=== PATIENT | female | born 1955 | race Caucasian/White ===

== ENCOUNTER 2018-12-10 03:21 | Inpatient (IN) | payer OTHER, MEDICARE ==
[~2018-12-10] VITALS: Ht 162.6 cm; Wt 73.1 kg
[2018-12-11 14:39] VITALS: BP 97/70
== END 2018-12-11 15:32 | disposition home or self-care (01) | DRG 100 ==
LOC: ED 06:05 → EDIP 06:10 → ED 06:16 → 4EST 07:18
PROVIDERS: ADMIT Internal Medicine; ATTEND Internal Medicine
PROC: 009U3ZX Drainage of Spinal Canal, Percutaneous Approach, Diagnostic (ICD-10-PCS; principal; 2018-12-10)
DX: G40.409 Other generalized epilepsy and epileptic syndromes, not intractable, without status epilepticus (principal); N17.0 Acute kidney failure with tubular necrosis; A86 Unspecified viral encephalitis; E87.2 Acidosis; R53.83 Other fatigue; I10 Essential (primary) hypertension; F17.210 Nicotine dependence, cigarettes, uncomplicated; W18.30XA Fall on same level, unspecified, initial encounter; R73.9 Hyperglycemia, unspecified; Z53.20 Procedure and treatment not carried out because of patient's decision for unspecified reasons; Z80.3 Family history of malignant neoplasm of breast; Z82.3 Family history of stroke; Z88.0 Allergy status to penicillin; Y93.89 Activity, other specified; Y92.89 Other specified places as the place of occurrence of the external cause; Y99.8 Other external cause status
CPT/HCPCS: 36415; 70450; 70553; 80048; 80053; 80307; 81003; 82945; 83735; 84100; 84157; 84484; 85025; 87040; 87070; 87205; 87252; 87529; 89051; 93005; 95816; 96374; 96375; 99291; A9585; G0378; J0133; J0696; J2405; J3370; J7060; J2060; J7050; J7120

== ENCOUNTER → 2019-08-03 | Outpatient (CLI) | payer OTHER, MEDICARE ==
[~2019-08-03] MED LIST: ACET-1600 PO; ACET325T26 PO; APIX5TAB PO; FURO-93 PO; SOTA80TA18 PO; THYR30TA PO
[2019-08-03 13:07] LABS: CHLORIDE 111 mmol/L (98-107)
[2019-08-03 13:22] LABS: ALANINE AMINOTRANSFERASE 88 U/L (12-78); ALBUMIN 3.8 g/dL (3.4-5.0); ALKALINE PHOSPHATASE 163 U/L (45-117); ANION GAP 8 mmol/L (5-15); BILIRUBIN,TOTAL 1.5 mg/dL (0.2-1.0); CALCIUM 9.1 mg/dL (8.5-10.1); CHOLESTEROL, TOTAL 149 mg/dL (140-239); CREATININE 1.14 mg/dL (0.55-1.02); HDL CHOL % 17 % (28-40); HDL CHOLESTEROL (DIRECT) 25 mg/dL (40-60); LDL CHOLESTEROL,CALCULATED 106 mg/dL (54-169); LDL/HDL RATIO 4.2 (0.5-3.0); T4 (THYROXINE) 7.9 mcg/dL (4.8-13.9); TOTAL PROTEIN 7.1 g/dL (6.4-8.2); TRIGLYCERIDES 89 mg/dL (50-200); VLDL CHOLESTEROL 18 mg/dL (0-25)
[2019-08-03 13:56] LABS: BASOPHILS # (AUTO) 0.04 x10^3/uL (0-0.1); BASOPHILS % (AUTO) 1 % (0-1); EOSINOPHILS # (AUTO) 0.13 x10^3/uL (0-0.4); EOSINOPHILS % (AUTO) 2 % (1-7); LYMPHOCYTES # (AUTO) 0.89 x10^3/uL (1-3.4); LYMPHOCYTES % (AUTO) 11 % (22-44); MEAN CORPUSCULAR HEMOGLOBIN 29.5 pg (27.0-34.8); MEAN CORPUSCULAR HGB CONC 32.7 g/dL (32.4-35.8); MEAN CORPUSCULAR VOLUME 90.2 fL (80-100); MEAN PLATELET VOLUME 10.1 fL (7.4-10.4); MONOCYTES # (AUTO) 1.19 x10^3/uL (0.2-0.8); MONOCYTES % (AUTO) 15 % (2-9); NEUTROPHILS # (AUTO) 5.91 x10^3/uL (1.8-6.8); NEUTROPHILS % (AUTO) 73 % (42-75); PLATELET COUNT 434 x10^3/uL (130-400); RED BLOOD COUNT 5.11 x10^6/uL (3.82-5.3); RED CELL DISTRIBUTION WIDTH 16.6 % (9.6-15.2)
[2019-08-03 13:57] LABS: MD MORPH REVIEW ONLY
[2019-08-03 14:00] LABS: ANISOCYTOSIS 1+; POLYCHROMASIA 1+
[2019-08-03 14:01] LABS: <PLATELET ESTIMATE> INCREASED; GIANT PLATELETS 1+; LARGE PLATELETS 1+; OVALOCYTES 1+
== END | disposition home or self-care (01) ==
LOC: CFH 09:17
PROVIDERS: ATTEND Internal Medicine Cardiovascular Disease
DX: Z51.81 Encounter for therapeutic drug level monitoring (principal); I11.0 Hypertensive heart disease with heart failure; R56.9 Unspecified convulsions; R79.89 Other specified abnormal findings of blood chemistry; E03.9 Hypothyroidism, unspecified; I48.0 Paroxysmal atrial fibrillation; Z79.01 Long term (current) use of anticoagulants
CPT/HCPCS: 36415; 80053; 80061; 84436; 84481; 85025

== ENCOUNTER 2019-08-04 10:38 | Inpatient (IN) | payer MEDICARE, OTHER ==
[~2019-08-04] VITALS: Ht 162.6 cm; Wt 73.4 kg
[~2019-08-04 10:38] MED LIST changes: -ACET-1600 PO
[2019-08-04] MEDS ORDERED: SODIUM CHLORIDE 0.9% 1,000 ML IV SCH (12:01)
[2019-08-04 12:03] VITALS: BP 113/65
[2019-08-04] MEDS ORDERED: ACET-1600 PO (12:26)
[2019-08-04] MEDS ORDERED: MIDAZOLAM 1 MG/ML, 5ML ONE (12:34)
[2019-08-04] MEDS ORDERED: HEPARIN 1,000 UNITS/ML, 10ML ONE (12:34)
[2019-08-04] MEDS ORDERED: FENTANYL PF 100 MCG/2ML ONE (12:34)
[2019-08-04] MEDS ORDERED: LIDOCAINE-MPF 1%, 5ML ONE (12:34)
[2019-08-04] MEDS ORDERED: BIVALIRUDIN 250 MG ONE (12:34)
[2019-08-04] MEDS ORDERED: VERAPAMIL 2.5 MG/ML, 2ML ONE (12:34)
[2019-08-04] MEDS ORDERED: TICAGRELOR 90 MG TABLET ONE (12:34)
[2019-08-04] MEDS ORDERED: EPINEPHRINE SYRINGE 0.1 MG/ML, 10ML ONE ×4 (13:20→15:08)
[2019-08-04] MEDS ORDERED: DIPHENHYDRAMINE 50 MG/ML, 1ML ONE (13:20)
[2019-08-04] MEDS ORDERED: PROPOFOL 100 ML IV ONE (13:39)
[2019-08-04] MEDS ORDERED: LIDOCAINE 2%, 20ML ONE (13:44)
[2019-08-04] MEDS ORDERED: EPINEPHRINE 1 MG/ML, 1ML ONE (13:57)
[2019-08-04] MEDS ORDERED: CODE BLUE RESPONSE XX ONE (13:57)
[2019-08-04] MEDS ORDERED: SODIUM BICARB 8.4%, 50ML SYRINGE ONE (13:57)
[2019-08-04] MEDS ORDERED: PHENYLEPHRINE 10 MG/ML ONE ×3 (13:59→14:36)
[2019-08-04] MEDS ORDERED: ETOMIDATE 20 MG/10 ML ONE (15:09)
[2019-08-04] MEDS ORDERED: SUCCINYLCHOLINE 20 MG/ML, 10ML ONE (15:09)
[2019-08-04] MEDS ORDERED: SODIUM PHOSPHATE 20 MMOL in SODIUM CHLORIDE 0.9% 250 ML IVPB PRN (15:25)
[2019-08-04] MEDS ORDERED: PROPOFOL 100 ML IV PRN (15:25)
[2019-08-04] MEDS ORDERED: FENTANYL PF 100 MCG/2ML IVPush PRN (15:30)
[2019-08-04] MEDS ORDERED: PHARMACY MAY ADJ FOR RENAL FX MC SCH (15:30)
[2019-08-04] MEDS ORDERED: HEPARIN 25,000 UNITS/250ML PMX 250 ML IV PRN (15:30)
[2019-08-04] MEDS ORDERED: LIDOCAINE-MPF 1%, 2ML ENDO PRN (15:30)
[2019-08-04] MEDS ORDERED: CALCIUM CHLORIDE 13.6 MEQ in SODIUM CHLORIDE 0.9% 100 ML IVPB PRN (15:30)
[2019-08-04] MEDS ORDERED: HEPARIN 5,000 UNITS/ML, 1ML IV PRN (15:30)
[2019-08-04] MEDS ORDERED: HEPARIN 5,000 UNITS/ML, 1ML IV ONE (15:30)
[2019-08-04] MEDS ORDERED: FENTANYL PF 1,000 MCG in SODIUM CHLORIDE 0.9% 80 ML IV PRN (15:30)
[2019-08-04] MEDS: FENTANYL PF 1,000 MCG in SODIUM CHLORIDE 0.9% 80 ML IV PRN (16:19)
[2019-08-04] MEDS ORDERED: FUROSEMIDE 40 MG/4 ML ONE (16:24)
[2019-08-04] MEDS ORDERED: FUROSEMIDE 40 MG/4 ML IV ONE (16:30)
[2019-08-04] MEDS ORDERED: POTASSIUM CHLORIDE PMX 100 ML IV ONE (16:30)
[2019-08-04] MEDS ORDERED: MAGNESIUM SULFATE PMX 2GM/50ML 50 ML IV ONE (16:30)
[2019-08-04] MEDS: ARTIFICIAL TEARS OINT 3.5 GM EACHEYE SCH (16:36)
[2019-08-04] MEDS: FAMOTIDINE 20 MG/2 ML IVPush SCH (16:41)
[2019-08-04] MEDS: MIDAZOLAM HCL 50 MG in SODIUM CHLORIDE 0.9% 40 ML IV PRN ×2 (17:18→19:22)
[2019-08-04] MEDS ORDERED: VECURONIUM 50 MG in SODIUM CHLORIDE 0.9% 50 ML IV PRN (17:30)
[2019-08-04] MEDS ORDERED: DOPAMINE/D5W PMX 250 ML ONE (17:36)
[2019-08-04] MEDS ORDERED: SODIUM CHLORIDE 0.9%, 500ML IVBOLUS ONE (18:00)
[2019-08-04 18:26] LABS: ALBUMIN 2.7 g/dL (3.4-5.0); ANION GAP 9 mmol/L (5-15); CALCIUM 7.1 mg/dL (8.5-10.1); CHLORIDE 113 mmol/L (98-107)
[2019-08-04 18:27] LABS: INTERNATIONAL NORMALIZED RATIO 1.75 (0.93-1.1); PROTHROMBIN TIME 18.7 Seconds (9.6-11.5)
[2019-08-04 18:37] LABS: ALANINE AMINOTRANSFERASE 69 U/L (12-78); ALKALINE PHOSPHATASE 123 U/L (45-117); CREATININE 1.38 mg/dL (0.55-1.02); TOTAL PROTEIN 5.4 g/dL (6.4-8.2)
[2019-08-04] MEDS: PROPOFOL 100 ML IV PRN (19:21)
[2019-08-04 19:44] LABS: MD YES; MEAN CORPUSCULAR HEMOGLOBIN 29.6 pg (27.0-34.8); MEAN CORPUSCULAR HGB CONC 32.8 g/dL (32.4-35.8); MEAN CORPUSCULAR VOLUME 90.1 fL (80-100); MEAN PLATELET VOLUME 8.1 fL (7.4-10.4); PLATELET COUNT 53 x10^3/uL (130-400); RED BLOOD COUNT 4.94 x10^6/uL (3.82-5.3); RED CELL DISTRIBUTION WIDTH 16.8 % (9.6-15.2)
[2019-08-04] MEDS: KSCALE TO 4.0 IV SCH (19:47)
[2019-08-04 19:49] LABS: <PLATELET ESTIMATE> DECREASED; ANISOCYTOSIS 1+; BAND#(MANUAL) 2.51 x10^3/uL; BANDS%(MANUAL) 14 % (0-7); EOS#(MANUAL) 0.18 x10^3/uL (0.0-0.4); EOS% (MANUAL) 1 % (1-7); LYMPH#(MANUAL) 2.33 x10^3/uL (1-3.4); LYMPHS% (MANUAL) 13 % (22-44); METAMYELOCYTES# (MANUAL) 0.18 x10^3/uL (0-0); METAMYELOCYTES% (MANUAL) 1 % (0-1); MONOS#(MANUAL) 2.33 x10^3/uL (0.3-2.7); MONOS% (MANUAL) 13 % (2-9); OVALOCYTES 1+; POLYCHROMASIA 1+; SEG#(MANUAL) 10.38 x10^3/uL (1.8-6.8); SEGS% (MANUAL) 58 % (42-75); SPHEROCYTES 1+
[2019-08-04 19:50] LABS: HYPOGRAN PLTS 1+; LARGE PLATELETS 1+
[2019-08-04] MEDS ORDERED: POTASSIUM CHLORIDE PMX 100 ML IVPB SCH (20:00)
[2019-08-04] MEDS ORDERED: MIDAZOLAM HCL 100 MG in SODIUM CHLORIDE 0.9% 80 ML IV PRN (20:30)
[2019-08-04] MEDS: BUSPIRONE 10 MG TABLET NG SCH (20:39)
[2019-08-04] MEDS ORDERED: NOREPINEPHRINE 1 MG/ML, 4ML ONE (21:41)
[2019-08-04] MEDS: NOREPINEPHRINE 8 MG in SODIUM CHLORIDE 0.9% 242 ML IV PRN (22:00)
[2019-08-05] MEDS: KSCALE TO 4.0 IV SCH ×7 (00:05→22:59)
[2019-08-05] MEDS: ARTIFICIAL TEARS OINT 3.5 GM EACHEYE SCH ×3 (00:37→15:50)
[2019-08-05 02:54] LABS: ANION GAP 9 mmol/L (5-15); CALCIUM 7.3 mg/dL (8.5-10.1); CHLORIDE 113 mmol/L (98-107); CREATININE 1.37 mg/dL (0.55-1.02)
[2019-08-05] MEDS: PROPOFOL 100 ML IV PRN ×2 (03:08→18:26)
[2019-08-05] MEDS: NOREPINEPHRINE 8 MG in SODIUM CHLORIDE 0.9% 242 ML IV PRN ×2 (03:26→08:15)
[2019-08-05] MEDS: EPINEPHRINE 5 MG in SODIUM CHLORIDE 0.9% 245 ML IV PRN ×2 (03:33→07:19)
[2019-08-05] MEDS ORDERED: POTASSIUM CHLORIDE PMX 100 ML IV ONE ×2 (04:00→12:00)
[2019-08-05] MEDS: FAMOTIDINE 20 MG/2 ML IVPush SCH ×2 (04:13→17:00)
[2019-08-05] MEDS: BUSPIRONE 10 MG TABLET NG SCH ×3 (04:13→20:54)
[2019-08-05] MEDS: FENTANYL PF 1,000 MCG in SODIUM CHLORIDE 0.9% 80 ML IV PRN ×2 (04:40→18:27)
[2019-08-05 05:00] VITALS: BP 104/80
[2019-08-05 06:33] LABS: MEAN CORPUSCULAR HEMOGLOBIN 28.8 pg (27.0-34.8); MEAN CORPUSCULAR HGB CONC 32.6 g/dL (32.4-35.8); MEAN CORPUSCULAR VOLUME 88.5 fL (80-100); MEAN PLATELET VOLUME 8.8 fL (7.4-10.4); RED BLOOD COUNT 4.64 x10^6/uL (3.82-5.3); RED CELL DISTRIBUTION WIDTH 16.9 % (9.6-15.2)
[2019-08-05 06:35] LABS: MD YES
[2019-08-05 06:36] LABS: BANDS%(MANUAL) 4 % (0-7); EOS% (MANUAL) 1 % (1-7); LYMPH#(MANUAL) 1.21 x10^3/uL (1-3.4); LYMPHS% (MANUAL) 6 % (22-44); MONOS#(MANUAL) 2.41 x10^3/uL (0.3-2.7); MONOS% (MANUAL) 12 % (2-9); SEG#(MANUAL) 15.48 x10^3/uL (1.8-6.8); SEGS% (MANUAL) 77 % (42-75)
[2019-08-05 06:37] LABS: ANISOCYTOSIS 1+; ECHINOCYTES 1+; POLYCHROMASIA 1+
[2019-08-05 06:38] LABS: OVALOCYTES 1+; PLATELET COUNT 39 x10^3/uL (130-400)
[2019-08-05 06:39] LABS: <PLATELET ESTIMATE> DECREASED; HYPOGRAN PLTS 1+; LARGE PLATELETS 1+; SPHEROCYTES 1+
[2019-08-05] MEDS: DEXTROSE 50%, 50ML SYRINGE IVPush PRN ×2 (08:20→17:00)
[2019-08-05] MEDS ORDERED: GLUCAGON 1 MG IM PRN (08:30)
[2019-08-05] MEDS ORDERED: DEXTROSE 4 GM TAB.CHEW PO PRN (08:30)
[2019-08-05] MEDS: D5%-0.9% NACL 1,000 ML IV SCH ×2 (08:32→20:48)
[2019-08-05] MEDS: SODIUM CHLORIDE FLUSH 10ML SYR IVF SCH ×2 (10:28→20:57)
[2019-08-05] MEDS ORDERED: VANCOMYCIN PER PHARMACY MC PRN (12:00)
[2019-08-05] MEDS ORDERED: SODIUM CHLORIDE 0.9%, 500ML IVBOLUS ONE (12:00)
[2019-08-05] MEDS ORDERED: PHARMACOKINETIC MONITORING MC PRN (13:00)
[2019-08-05] MEDS ORDERED: PHARMACOKINETIC CONSULTATION MC ONE (13:00)
[2019-08-05] MEDS: VANCOMYCIN 1,400 MG in SODIUM CHLORIDE 0.9% 250 ML IV SCH (13:04)
[2019-08-05 16:34] LABS: INTERNATIONAL NORMALIZED RATIO 1.74 (0.93-1.1); PROTHROMBIN TIME 18.5 Seconds (9.6-11.5)
--- NOTE | 2019-08-05 17:05 | NUR ---
TF Recommendations if Needed promote goal: On propofol 65 ml/hr Off propofol 70 ml/hr
[2019-08-05] MEDS ORDERED: VASOPRESSIN 20 UNIT in SODIUM CHLORIDE 0.9% 99 ML IV PRN (17:30)
[2019-08-05 18:17] LABS: ALANINE AMINOTRANSFERASE 66 U/L (12-78); ALBUMIN 2.4 g/dL (3.4-5.0); ANION GAP 6 mmol/L (5-15); CALCIUM 6.6 mg/dL (8.5-10.1); CHLORIDE 116 mmol/L (98-107); CREATININE 1.36 mg/dL (0.55-1.02)
[2019-08-05 18:18] LABS: ALKALINE PHOSPHATASE 95 U/L (45-117); BILIRUBIN,TOTAL 1.5 mg/dL (0.2-1.0); TOTAL PROTEIN 4.8 g/dL (6.4-8.2)
[2019-08-05 18:53] LABS: D-DIMER (DIC) 1.09 ug/mlFEU (0.00-0.52); FIBRINOGEN 281 mg/dL (200-340); PROTIME 17.2 Seconds (9.6-11.5)
[2019-08-05 19:17] LABS: MEAN CORPUSCULAR HGB CONC 32.4 g/dL (32.4-35.8); MEAN CORPUSCULAR VOLUME 89.4 fL (80-100); RED CELL DISTRIBUTION WIDTH 17.2 % (9.6-15.2)
[2019-08-05 19:19] LABS: MD YES
[2019-08-05 19:21] LABS: ANISOCYTOSIS 1+; BAND#(MANUAL) 2.17 x10^3/uL; BANDS%(MANUAL) 14 % (0-7); BASOS#(MANUAL) 0.16 x10^3/uL (0-0.1); BASOS% (MANUAL) 1 % (0-1); ECHINOCYTES 1+; EOS#(MANUAL) 0.47 x10^3/uL (0.0-0.4); EOS% (MANUAL) 3 % (1-7); LYMPH#(MANUAL) 0.78 x10^3/uL (1-3.4); LYMPHS% (MANUAL) 5 % (22-44); MONOS#(MANUAL) 0.93 x10^3/uL (0.3-2.7); MONOS% (MANUAL) 6 % (2-9); OVALOCYTES 1+; POLYCHROMASIA 1+; REACTIVE LYMPHS # (MANUAL) 0.16 x10^3/uL (0-0); REACTIVE LYMPHS % (MANUAL) 1 % (0-0); SEG#(MANUAL) 10.85 x10^3/uL (1.8-6.8); SEGS% (MANUAL) 70 % (42-75)
[2019-08-05 19:22] LABS: <PLATELET ESTIMATE> DECREASED; LARGE PLATELETS 1+
[2019-08-05 19:38] LABS: PTT > 153 Seconds (25-31)
[2019-08-05 19:39] LABS: PLATELET (DIC) 20 x10^3/uL (130-400)
[2019-08-05 19:40] LABS: MEAN PLATELET VOLUME 10.6 fL (7.4-10.4); PLATELET COUNT 20 x10^3/uL (130-400)
[2019-08-05 20:04] LABS: HIT RESULT NEGATIVE (NEGATIVE)
[2019-08-05 20:33] LABS: MICROSCOPIC INDICATED
[2019-08-05 20:43] LABS: CULTURE INDICATED? YES
[2019-08-05] MEDS ORDERED: ARGATROBAN 250 MG in SODIUM CHLORIDE 0.9% 247.5 ML IV PRN ×3 (21:30→22:30)
[2019-08-05] MEDS ORDERED: POTASSIUM CHLORIDE PMX 100 ML IVPB SCH (23:00)
[2019-08-06] MEDS: NOREPINEPHRINE 8 MG in SODIUM CHLORIDE 0.9% 242 ML IV PRN ×3 (02:19→17:58)
[2019-08-06] MEDS: KSCALE TO 4.0 IV SCH ×7 (02:43→23:45)
[2019-08-06 04:02] LABS: ANION GAP 8 mmol/L (5-15); CALCIUM 6.7 mg/dL (8.5-10.1); CHLORIDE 119 mmol/L (98-107); CREATININE 1.33 mg/dL (0.55-1.02)
[2019-08-06 04:14] LABS: BASOPHILS # (AUTO) 0.01 x10^3/uL (0-0.1); BASOPHILS % (AUTO) 0 % (0-1); EOSINOPHILS # (AUTO) 0.13 x10^3/uL (0-0.4); EOSINOPHILS % (AUTO) 1 % (1-7); LYMPHOCYTES # (AUTO) 1.03 x10^3/uL (1-3.4); LYMPHOCYTES % (AUTO) 7 % (22-44); MD SCAN; MEAN CORPUSCULAR HEMOGLOBIN 29.3 pg (27.0-34.8); MEAN CORPUSCULAR HGB CONC 32.2 g/dL (32.4-35.8); MEAN CORPUSCULAR VOLUME 90.9 fL (80-100); MONOCYTES % (AUTO) 15 % (2-9); NEUTROPHILS # (AUTO) 12.38 x10^3/uL (1.8-6.8); NEUTROPHILS % (AUTO) 78 % (42-75); RED BLOOD COUNT 4.59 x10^6/uL (3.82-5.3); RED CELL DISTRIBUTION WIDTH 17.2 % (9.6-15.2)
[2019-08-06 04:16] LABS: MEAN PLATELET VOLUME 10.1 fL (7.4-10.4); PLATELET COUNT 22 x10^3/uL (130-400)
[2019-08-06] MEDS: FAMOTIDINE 20 MG/2 ML IVPush SCH ×2 (04:50→21:24)
[2019-08-06] MEDS: D5%-0.9% NACL 1,000 ML IV SCH ×2 (04:50→18:17)
[2019-08-06] MEDS: BUSPIRONE 10 MG TABLET NG SCH (04:50)
[2019-08-06] MEDS: EPINEPHRINE 5 MG in SODIUM CHLORIDE 0.9% 245 ML IV PRN ×2 (06:19→17:58)
[2019-08-06] MEDS ORDERED: ARGATROBAN 250 MG in SODIUM CHLORIDE 0.9% 247.5 ML IV PRN (07:00)
[2019-08-06] MEDS: ARTIFICIAL TEARS OINT 3.5 GM EACHEYE SCH ×3 (07:30→15:30)
[2019-08-06] MEDS: MAGNESIUM SULFATE 1 GM in DEXTROSE 5% 100 ML IVPB PRN ×2 (08:45→17:58)
[2019-08-06] MEDS: SODIUM CHLORIDE FLUSH 10ML SYR IVF SCH ×2 (10:48→21:26)
[2019-08-06 10:51] LABS: MEAN CORPUSCULAR HEMOGLOBIN 29.3 pg (27.0-34.8); MEAN CORPUSCULAR VOLUME 88.9 fL (80-100); MEAN PLATELET VOLUME 11.6 fL (7.4-10.4); RED BLOOD COUNT 4.29 x10^6/uL (3.82-5.3); RED CELL DISTRIBUTION WIDTH 17.5 % (9.6-15.2)
[2019-08-06 10:56] LABS: BASOPHILS # (AUTO) 0.02 x10^3/uL (0-0.1); BASOPHILS % (AUTO) 0 % (0-1); EOSINOPHILS # (AUTO) 0.09 x10^3/uL (0-0.4); EOSINOPHILS % (AUTO) 1 % (1-7); LYMPHOCYTES # (AUTO) 0.63 x10^3/uL (1-3.4); LYMPHOCYTES % (AUTO) 4 % (22-44); MD SCAN; MONOCYTES # (AUTO) 2.22 x10^3/uL (0.2-0.8); MONOCYTES % (AUTO) 13 % (2-9); NEUTROPHILS # (AUTO) 13.88 x10^3/uL (1.8-6.8); NEUTROPHILS % (AUTO) 82 % (42-75)
[2019-08-06 10:58] LABS: PLATELET COUNT 21 x10^3/uL (130-400)
[2019-08-06] MEDS: PROPOFOL 100 ML IV PRN (12:06)
[2019-08-06] MEDS: VANCOMYCIN 1,400 MG in SODIUM CHLORIDE 0.9% 250 ML IV SCH (13:41)
[2019-08-06] MEDS ORDERED: ARTIFICIAL TEARS OINT 3.5 GM EACHEYE PRN (21:30)
[2019-08-07] MEDS: PROPOFOL 100 ML IV PRN (01:06)
[2019-08-07 03:52] LABS: ANION GAP 7 mmol/L (5-15); CALCIUM 6.7 mg/dL (8.5-10.1); CHLORIDE 120 mmol/L (98-107); CREATININE 1.11 mg/dL (0.55-1.02); TRIGLYCERIDES 188 mg/dL (50-200)
[2019-08-07 03:53] LABS: MEAN CORPUSCULAR HEMOGLOBIN 29.3 pg (27.0-34.8); MEAN CORPUSCULAR HGB CONC 32.9 g/dL (32.4-35.8); MEAN CORPUSCULAR VOLUME 89.1 fL (80-100); RED BLOOD COUNT 3.65 x10^6/uL (3.82-5.3); RED CELL DISTRIBUTION WIDTH 17.1 % (9.6-15.2)
[2019-08-07] MEDS: D5%-0.9% NACL 1,000 ML IV SCH ×2 (04:10→12:00)
[2019-08-07] MEDS: KSCALE TO 4.0 IV SCH (04:11)
[2019-08-07 04:17] LABS: BASOPHILS # (AUTO) 0.03 x10^3/uL (0-0.1); BASOPHILS % (AUTO) 0 % (0-1); EOSINOPHILS # (AUTO) 0.13 x10^3/uL (0-0.4); EOSINOPHILS % (AUTO) 1 % (1-7); LYMPHOCYTES # (AUTO) 0.52 x10^3/uL (1-3.4); LYMPHOCYTES % (AUTO) 4 % (22-44); MD SCAN; MEAN PLATELET VOLUME 8.9 fL (7.4-10.4); MONOCYTES # (AUTO) 1.42 x10^3/uL (0.2-0.8); MONOCYTES % (AUTO) 11 % (2-9); NEUTROPHILS # (AUTO) 11.41 x10^3/uL (1.8-6.8); NEUTROPHILS % (AUTO) 84 % (42-75)
[2019-08-07 04:19] LABS: PLATELET COUNT 20 x10^3/uL (130-400)
[2019-08-07] MEDS: SODIUM CHLORIDE FLUSH 10ML SYR IVF SCH ×2 (09:00→21:14)
[2019-08-07] MEDS: VANCOMYCIN 1,400 MG in SODIUM CHLORIDE 0.9% 250 ML IV SCH (13:11)
[2019-08-07] MEDS: DEXTROSE 50%, 50ML SYRINGE IVPush PRN (13:20)
[2019-08-07] MEDS ORDERED: FUROSEMIDE 40 MG/4 ML IV ONE (13:30)
[2019-08-07] MEDS: FAMOTIDINE 20 MG/2 ML IVPush SCH (21:14)
[2019-08-07] MEDS ORDERED: FUROSEMIDE 20 MG/2 ML ONE (23:51)
[2019-08-08] MEDS ORDERED: FUROSEMIDE 20 MG/2 ML IV ONE
[2019-08-08] MEDS: D5%-0.9% NACL 1,000 ML IV SCH (00:02)
[2019-08-08 04:39] LABS: ANION GAP 7 mmol/L (5-15); CALCIUM 7.1 mg/dL (8.5-10.1); CHLORIDE 122 mmol/L (98-107); CREATININE 0.99 mg/dL (0.55-1.02)
[2019-08-08 04:59] LABS: MEAN CORPUSCULAR HEMOGLOBIN 28.8 pg (27.0-34.8); MEAN CORPUSCULAR HGB CONC 32.4 g/dL (32.4-35.8); RED BLOOD COUNT 3.47 x10^6/uL (3.82-5.3); RED CELL DISTRIBUTION WIDTH 17.3 % (9.6-15.2)
[2019-08-08 05:53] LABS: BASOPHILS # (AUTO) 0.01 x10^3/uL (0-0.1); BASOPHILS % (AUTO) 0 % (0-1); EOSINOPHILS # (AUTO) 0.03 x10^3/uL (0-0.4); EOSINOPHILS % (AUTO) 0 % (1-7); LYMPHOCYTES # (AUTO) 0.48 x10^3/uL (1-3.4); LYMPHOCYTES % (AUTO) 4 % (22-44); MD SCAN; MONOCYTES # (AUTO) 1.15 x10^3/uL (0.2-0.8); MONOCYTES % (AUTO) 10 % (2-9); NEUTROPHILS # (AUTO) 9.37 x10^3/uL (1.8-6.8); NEUTROPHILS % (AUTO) 85 % (42-75)
[2019-08-08 05:55] LABS: MEAN PLATELET VOLUME 10.7 fL (7.4-10.4); PLATELET COUNT 23 x10^3/uL (130-400)
[2019-08-08] MEDS ORDERED: ARGATROBAN 250 MG in SODIUM CHLORIDE 0.9% 247.5 ML IV PRN (07:00)
[2019-08-08] MEDS ORDERED: MAGNESIUM SULFATE/D5W 100 ML IVPB ONE (08:30)
[2019-08-08] MEDS ORDERED: POTASSIUM CHLORIDE 40 MEQ in SODIUM CHLORIDE 0.9% 100 ML IV ONE (08:30)
[2019-08-08] MEDS: SODIUM CHLORIDE FLUSH 10ML SYR IVF SCH ×2 (09:33→20:40)
[2019-08-08] MEDS ORDERED: MAGNESIUM SULFATE PMX 2GM/50ML 50 ML IV ONE (10:00)
[2019-08-08] MEDS: VANCOMYCIN 1,400 MG in SODIUM CHLORIDE 0.9% 250 ML IV SCH (13:33)
[2019-08-08] MEDS: FAMOTIDINE 20 MG/2 ML IVPush SCH (20:39)
[2019-08-08] MEDS ORDERED: hydrALAzine 20 MG/ML, 1ML ONE (23:20)
[2019-08-08] MEDS: hydrALAzine 20 MG/ML, 1ML IV PRN (23:25)
[2019-08-09] MEDS ORDERED: ISOSORBIDE MONONITRATE ER 30 MG TABLET PO ONE (03:30)
[2019-08-09 05:28] LABS: MEAN CORPUSCULAR HEMOGLOBIN 29.4 pg (27.0-34.8); MEAN CORPUSCULAR HGB CONC 32.6 g/dL (32.4-35.8); MEAN CORPUSCULAR VOLUME 90.1 fL (80-100); MEAN PLATELET VOLUME 10.4 fL (7.4-10.4); RED BLOOD COUNT 3.36 x10^6/uL (3.82-5.3); RED CELL DISTRIBUTION WIDTH 17.9 % (9.6-15.2)
[2019-08-09 05:30] LABS: PLATELET COUNT 49 x10^3/uL (130-400)
[2019-08-09 05:37] LABS: ANION GAP 7 mmol/L (5-15); CALCIUM 8.1 mg/dL (8.5-10.1); CHLORIDE 121 mmol/L (98-107); CREATININE 0.96 mg/dL (0.55-1.02)
[2019-08-09 05:55] LABS: BASOPHILS # (AUTO) 0.01 x10^3/uL (0-0.1); BASOPHILS % (AUTO) 0 % (0-1); EOSINOPHILS # (AUTO) 0.05 x10^3/uL (0-0.4); EOSINOPHILS % (AUTO) 1 % (1-7); LYMPHOCYTES # (AUTO) 0.72 x10^3/uL (1-3.4); LYMPHOCYTES % (AUTO) 7 % (22-44); MD SCAN; MONOCYTES # (AUTO) 1.01 x10^3/uL (0.2-0.8); MONOCYTES % (AUTO) 10 % (2-9); NEUTROPHILS # (AUTO) 8.41 x10^3/uL (1.8-6.8); NEUTROPHILS % (AUTO) 82 % (42-75)
[2019-08-09 06:02] LABS: FREE T4 (FREE THYROXINE) 0.77 ng/dL (0.76-1.46)
[2019-08-09] MEDS ORDERED: POTASSIUM PHOSPHATE 22 MEQ in SODIUM CHLORIDE 0.9% 500 ML IV ONE (06:30)
[2019-08-09] MEDS: SODIUM CHLORIDE FLUSH 10ML SYR IVF SCH ×2 (08:35→21:08)
[2019-08-09] MEDS: hydrALAzine 20 MG/ML, 1ML IV PRN ×2 (09:06→17:18)
[2019-08-09] MEDS: THYROID 30 MG TABLET PO SCH (11:07)
[2019-08-09] MEDS: LOSARTAN 25MG TABLET PO SCH (11:07)
[2019-08-09 12:43] LABS: T4 (THYROXINE) 6.1 mcg/dL (4.8-13.9)
[2019-08-09] MEDS ORDERED: ACETAMINOPHEN 325 MG TABLET PO PRN (16:00)
[2019-08-09] MEDS: FAMOTIDINE 20 MG/2 ML IVPush SCH (21:08)
[2019-08-10] MEDS: hydrALAzine 20 MG/ML, 1ML IV PRN (03:21)
[2019-08-10 05:00] LABS: ANION GAP 8 mmol/L (5-15); CALCIUM 8.3 mg/dL (8.5-10.1); CHLORIDE 121 mmol/L (98-107); CREATININE 1.05 mg/dL (0.55-1.02)
[2019-08-10 05:03] LABS: MEAN CORPUSCULAR HGB CONC 33.1 g/dL (32.4-35.8); MEAN CORPUSCULAR VOLUME 90.7 fL (80-100); RED BLOOD COUNT 3.49 x10^6/uL (3.82-5.3); RED CELL DISTRIBUTION WIDTH 17.6 % (9.6-15.2)
[2019-08-10] MEDS: THYROID 30 MG TABLET PO SCH (05:29)
[2019-08-10 05:59] LABS: BASOPHILS # (AUTO) 0.01 x10^3/uL (0-0.1); BASOPHILS % (AUTO) 0 % (0-1); EOSINOPHILS # (AUTO) 0.03 x10^3/uL (0-0.4); EOSINOPHILS % (AUTO) 0 % (1-7); LYMPHOCYTES # (AUTO) 0.69 x10^3/uL (1-3.4); LYMPHOCYTES % (AUTO) 6 % (22-44); MD SCAN; MEAN PLATELET VOLUME 10.2 fL (7.4-10.4); MONOCYTES # (AUTO) 1.27 x10^3/uL (0.2-0.8); MONOCYTES % (AUTO) 12 % (2-9); NEUTROPHILS # (AUTO) 8.78 x10^3/uL (1.8-6.8); NEUTROPHILS % (AUTO) 82 % (42-75); PLATELET COUNT 89 x10^3/uL (130-400)
[2019-08-10] MEDS: SODIUM CHLORIDE FLUSH 10ML SYR IVF SCH ×2 (09:00→21:18)
[2019-08-10] MEDS ORDERED: APIXABAN 5 MG TABLET PO SCH (09:00)
[2019-08-10] MEDS: LOSARTAN 25MG TABLET PO SCH (09:48)
[2019-08-10] MEDS ORDERED: LOSARTAN 50MG TABLET PO SCH (11:00)
[2019-08-10] MEDS ORDERED: LOSARTAN 25MG TABLET PO SCH (11:00)
[2019-08-10] MEDS ORDERED: LOSARTAN 25MG TABLET PO ONE (11:30)
[2019-08-10] MEDS: SOTALOL 80MG TABLET PO SCH ×2 (11:45→17:43)
--- NOTE | 2019-08-10 16:27 | NUR ---
REC ACUTE REHAB WITH BIOMETRICS ANALYST Addendum: 08/10/19 at [address] Amended: Links added.
[2019-08-10 17:10] VITALS: BP 139/94
[2019-08-10] MEDS ORDERED: ONDANSETRON 2MG/ML, 2ML IVPush ONE (17:30)
[2019-08-10] MEDS: LOSARTAN 50MG TABLET PO SCH (17:43)
[2019-08-10 20:56] VITALS: BP 137/92
[2019-08-10] MEDS: ENOXAPARIN 80 MG/0.8 ML SQ SCH (21:00)
[2019-08-11 02:00] VITALS: BP 145/97
[2019-08-11] MEDS ORDERED: ONDANSETRON 2MG/ML, 2ML IVPush ONE (02:00)
[2019-08-11] MEDS: THYROID 30 MG TABLET PO SCH (06:00)
[2019-08-11] MEDS: SOTALOL 80MG TABLET PO SCH ×2 (06:00→16:33)
[2019-08-11 06:09] LABS: ANION GAP 7 mmol/L (5-15); CALCIUM 8.8 mg/dL (8.5-10.1); CHLORIDE 119 mmol/L (98-107)
[2019-08-11 07:31] LABS: BASOPHILS # (AUTO) 0.01 x10^3/uL (0-0.1); BASOPHILS % (AUTO) 0 % (0-1); EOSINOPHILS # (AUTO) 0.06 x10^3/uL (0-0.4); EOSINOPHILS % (AUTO) 1 % (1-7); LYMPHOCYTES # (AUTO) 0.77 x10^3/uL (1-3.4); LYMPHOCYTES % (AUTO) 7 % (22-44); MD SCAN; MEAN CORPUSCULAR HEMOGLOBIN 29.2 pg (27.0-34.8); MEAN CORPUSCULAR HGB CONC 32.3 g/dL (32.4-35.8); MEAN CORPUSCULAR VOLUME 90.2 fL (80-100); MEAN PLATELET VOLUME 9.9 fL (7.4-10.4); MONOCYTES # (AUTO) 2.06 x10^3/uL (0.2-0.8); MONOCYTES % (AUTO) 19 % (2-9); NEUTROPHILS # (AUTO) 7.92 x10^3/uL (1.8-6.8); NEUTROPHILS % (AUTO) 73 % (42-75); PLATELET COUNT 86 x10^3/uL (130-400); RED BLOOD COUNT 3.68 x10^6/uL (3.82-5.3); RED CELL DISTRIBUTION WIDTH 17.7 % (9.6-15.2)
[2019-08-11 08:06] VITALS: BP 137/88
[2019-08-11] MEDS: LOSARTAN 50MG TABLET PO SCH ×2 (09:00→21:00)
--- NOTE | 2019-08-11 10:57 | NUR ---
Updated TF goal recs: Jevcarson 1.2 @ 55ml/hour
[2019-08-11] MEDS: hydrALAzine 20 MG/ML, 1ML IV SCH ×3 (13:10→20:58)
[2019-08-11] MEDS: ENOXAPARIN 80 MG/0.8 ML SQ SCH ×2 (13:10→20:58)
[2019-08-11] MEDS: SODIUM CHLORIDE FLUSH 10ML SYR IVF SCH ×2 (13:11→20:57)
[2019-08-11 13:55] VITALS: BP 141/95
[2019-08-11] MEDS: ONDANSETRON 2MG/ML, 2ML IVPush PRN (18:01)
[2019-08-11 19:57] VITALS: BP 143/86
[2019-08-12 00:08] VITALS: BP 137/88
[2019-08-12 04:31] VITALS: BP 137/86
[2019-08-12] MEDS: hydrALAzine 20 MG/ML, 1ML IV SCH ×4 (04:34→22:12)
[2019-08-12 04:56] LABS: MEAN CORPUSCULAR HEMOGLOBIN 29.3 pg (27.0-34.8); MEAN CORPUSCULAR HGB CONC 31.7 g/dL (32.4-35.8); MEAN CORPUSCULAR VOLUME 92.3 fL (80-100); MEAN PLATELET VOLUME 9.8 fL (7.4-10.4); PLATELET COUNT 50 x10^3/uL (130-400); RED BLOOD COUNT 4.07 x10^6/uL (3.82-5.3); RED CELL DISTRIBUTION WIDTH 18.5 % (9.6-15.2)
[2019-08-12 05:08] LABS: ANION GAP 6 mmol/L (5-15); CALCIUM 8.5 mg/dL (8.5-10.1); CHLORIDE 120 mmol/L (98-107)
[2019-08-12 05:09] LABS: CREATININE 0.71 mg/dL (0.55-1.02)
[2019-08-12] MEDS: SOTALOL 80MG TABLET PO SCH ×2 (06:00→17:24)
[2019-08-12] MEDS: THYROID 30 MG TABLET PO SCH (06:00)
[2019-08-12 06:09] LABS: MD YES
[2019-08-12 06:15] LABS: BAND#(MANUAL) 0.37 x10^3/uL; BANDS%(MANUAL) 2 % (0-7); LYMPH#(MANUAL) 0.37 x10^3/uL (1-3.4); LYMPHS% (MANUAL) 2 % (22-44); METAMYELOCYTES# (MANUAL) 0.18 x10^3/uL (0-0); METAMYELOCYTES% (MANUAL) 1 % (0-1); MONOS#(MANUAL) 2.75 x10^3/uL (0.3-2.7); MONOS% (MANUAL) 15 % (2-9); NRBC % (MANUAL) 2 % (0-1); SEG#(MANUAL) 14.64 x10^3/uL (1.8-6.8); SEGS% (MANUAL) 80 % (42-75)
[2019-08-12 06:16] LABS: ANISOCYTOSIS 1+
[2019-08-12 06:20] LABS: ECHINOCYTES 1+; OVALOCYTES 1+; POLYCHROMASIA 2+
[2019-08-12 06:23] LABS: <PLATELET ESTIMATE> DECREASED; <PLT MORPHOLOGY> NORMAL PLT MORPH
[2019-08-12 06:47] VITALS: BP 126/72
[2019-08-12 07:48] VITALS: BP 130/80
[2019-08-12 07:54] LABS: O2 FLOW 6 L/min
[2019-08-12] MEDS: LOSARTAN 50MG TABLET PO SCH ×2 (07:56→21:08)
[2019-08-12] MEDS: SODIUM CHLORIDE FLUSH 10ML SYR IVF SCH ×2 (08:28→21:12)
[2019-08-12] MEDS: FUROSEMIDE 40 MG/4 ML IV SCH ×2 (08:28→16:03)
[2019-08-12] MEDS: LEVOTHYROXINE 100 MCG INJ IVPush SCH (09:53)
[2019-08-12] MEDS: ENOXAPARIN 80 MG/0.8 ML SQ SCH (09:54)
[2019-08-12] MEDS: MEROPENEM 1 GM in SODIUM CHLORIDE 0.9% 100 ML IV SCH ×3 (10:04→23:56)
[2019-08-12] MEDS ORDERED: OMNIPAQUE 350 MG/ML, 100ML BOTTLE ONE (12:43)
[2019-08-12] MEDS: ONDANSETRON 2MG/ML, 2ML IVPush PRN (15:24)
[2019-08-12] MEDS ORDERED: SODIUM CHLORIDE 0.9%, 250ML IVBOLUS ONE (15:30)
[2019-08-12] MEDS ORDERED: AMIODARONE 150 MG in DEXTROSE 5% 100 ML IV ONE (15:30)
[2019-08-12] MEDS ORDERED: DIGOXIN 0.25 MG/ML, 2ML ONE (15:48)
[2019-08-12] MEDS ORDERED: DIGOXIN 0.25 MG/ML, 2ML IVPush ONE (16:00)
[2019-08-12] MEDS: AMIODARONE 450 MG in DEXTROSE 5% 241 ML IV PRN ×2 (16:13→23:57)
[2019-08-13] MEDS: hydrALAzine 20 MG/ML, 1ML IV SCH ×4 (03:45→22:00)
[2019-08-13 05:00] VITALS: BP 106/62
[2019-08-13 05:05] LABS: ANION GAP 3 mmol/L (5-15); CALCIUM 8.3 mg/dL (8.5-10.1); CHLORIDE 114 mmol/L (98-107); CREATININE 0.78 mg/dL (0.55-1.02)
[2019-08-13] MEDS: SOTALOL 80MG TABLET PO SCH (05:29)
[2019-08-13 05:49] LABS: BASOPHILS # (AUTO) 0.05 x10^3/uL (0-0.1); BASOPHILS % (AUTO) 0 % (0-1); EOSINOPHILS # (AUTO) 0.07 x10^3/uL (0-0.4); EOSINOPHILS % (AUTO) 1 % (1-7); LYMPHOCYTES % (AUTO) 4 % (22-44); MD SCAN; MEAN CORPUSCULAR HEMOGLOBIN 29.3 pg (27.0-34.8); MEAN CORPUSCULAR HGB CONC 32.1 g/dL (32.4-35.8); MEAN CORPUSCULAR VOLUME 91.2 fL (80-100); MEAN PLATELET VOLUME 12.3 fL (7.4-10.4); MONOCYTES % (AUTO) 13 % (2-9); NEUTROPHILS # (AUTO) 11.54 x10^3/uL (1.8-6.8); NEUTROPHILS % (AUTO) 83 % (42-75); PLATELET COUNT 86 x10^3/uL (130-400); RED BLOOD COUNT 3.81 x10^6/uL (3.82-5.3)
[2019-08-13] MEDS: FUROSEMIDE 40 MG/4 ML IV SCH ×2 (07:51→17:12)
[2019-08-13] MEDS: AMIODARONE 450 MG in DEXTROSE 5% 241 ML IV PRN ×3 (07:52→23:37)
[2019-08-13] MEDS: FILTER 0.22 MICRON IV PRN ×2 (07:52→23:36)
[2019-08-13] MEDS: MEROPENEM 1 GM in SODIUM CHLORIDE 0.9% 100 ML IV SCH ×3 (07:55→23:32)
[2019-08-13] MEDS: SODIUM CHLORIDE FLUSH 10ML SYR IVF SCH (08:55)
[2019-08-13] MEDS: LEVOTHYROXINE 100 MCG INJ IVPush SCH (08:55)
[2019-08-13] MEDS: LOSARTAN 50MG TABLET PO SCH ×2 (09:00→21:02)
[2019-08-13] MEDS ORDERED: LORazepam 2 MG/ML, 1ML IVPush ONE (09:30)
[2019-08-13] MEDS ORDERED: LIDOCAINE 2% VISCOUS 15 ML UDC MM ONE (09:30)
[2019-08-13] MEDS: DIGOXIN 0.25 MG/ML, 2ML IVPush SCH ×2 (09:36→15:13)
[2019-08-13] MEDS: APIXABAN 5 MG TABLET PO SCH (21:03)
[2019-08-14] MEDS: hydrALAzine 20 MG/ML, 1ML IV SCH ×4 (04:05→21:59)
[2019-08-14 04:27] LABS: MEAN CORPUSCULAR HGB CONC 31.6 g/dL (32.4-35.8); MEAN CORPUSCULAR VOLUME 91.6 fL (80-100); MEAN PLATELET VOLUME 11.1 fL (7.4-10.4); PLATELET COUNT 132 x10^3/uL (130-400); RED BLOOD COUNT 4.32 x10^6/uL (3.82-5.3); RED CELL DISTRIBUTION WIDTH 18.8 % (9.6-15.2)
[2019-08-14 04:36] LABS: ANION GAP 0 mmol/L (5-15); CALCIUM 8.3 mg/dL (8.5-10.1); CHLORIDE 106 mmol/L (98-107); CREATININE 0.82 mg/dL (0.55-1.02)
[2019-08-14 04:44] LABS: BASOPHILS # (AUTO) 0.01 x10^3/uL (0-0.1); BASOPHILS % (AUTO) 0 % (0-1); EOSINOPHILS # (AUTO) 0.24 x10^3/uL (0-0.4); EOSINOPHILS % (AUTO) 2 % (1-7); LYMPHOCYTES # (AUTO) 0.51 x10^3/uL (1-3.4); LYMPHOCYTES % (AUTO) 5 % (22-44); MD SCAN; MONOCYTES # (AUTO) 1.82 x10^3/uL (0.2-0.8); MONOCYTES % (AUTO) 16 % (2-9); NEUTROPHILS # (AUTO) 8.54 x10^3/uL (1.8-6.8); NEUTROPHILS % (AUTO) 77 % (42-75)
[2019-08-14 05:01] VITALS: BP 120/65
[2019-08-14] MEDS ORDERED: MAGNESIUM SULFATE PMX 2GM/50ML 50 ML IV ONE (07:00)
[2019-08-14] MEDS ORDERED: POTASSIUM CHLORIDE 10% 40 MEQ/30 ML UDC PO ONE (07:00)
[2019-08-14] MEDS: FUROSEMIDE 40 MG/4 ML IV SCH ×2 (07:30→17:00)
[2019-08-14] MEDS: LOSARTAN 50MG TABLET PO SCH ×2 (09:00→21:58)
[2019-08-14] MEDS: APIXABAN 5 MG TABLET PO SCH ×2 (09:00→21:59)
[2019-08-14] MEDS: MEROPENEM 1 GM in SODIUM CHLORIDE 0.9% 100 ML IV SCH ×3 (09:48→23:09)
[2019-08-14] MEDS: LEVOTHYROXINE 100 MCG INJ IVPush SCH (11:15)
[2019-08-14] MEDS ORDERED: LORazepam 2 MG/ML, 1ML IVPush PRN (14:30)
[2019-08-14] MEDS ORDERED: POTASSIUM CHLORIDE 20 MEQ in SODIUM CHLORIDE 0.9% 250 ML IV ONE (18:30)
[2019-08-14 19:15] VITALS: BP 126/75
[2019-08-14 22:00] VITALS: BP 125/80
[2019-08-15 00:31] VITALS: BP 112/76
[2019-08-15] MEDS: AMIODARONE 450 MG in DEXTROSE 5% 241 ML IV PRN ×2 (00:57→18:52)
[2019-08-15] MEDS: hydrALAzine 20 MG/ML, 1ML IV SCH ×4 (03:58→21:51)
[2019-08-15 04:53] LABS: MEAN CORPUSCULAR HEMOGLOBIN 28.9 pg (27.0-34.8); MEAN CORPUSCULAR HGB CONC 31.8 g/dL (32.4-35.8); MEAN PLATELET VOLUME 10.8 fL (7.4-10.4); PLATELET COUNT 170 x10^3/uL (130-400); RED BLOOD COUNT 3.93 x10^6/uL (3.82-5.3); RED CELL DISTRIBUTION WIDTH 18.6 % (9.6-15.2)
[2019-08-15 05:02] LABS: ANION GAP 5 mmol/L (5-15); CALCIUM 8.5 mg/dL (8.5-10.1); CHLORIDE 105 mmol/L (98-107)
[2019-08-15 05:05] LABS: CREATININE 0.64 mg/dL (0.55-1.02)
[2019-08-15 05:49] LABS: BASOPHILS # (AUTO) 0.01 x10^3/uL (0-0.1); BASOPHILS % (AUTO) 0 % (0-1); EOSINOPHILS # (AUTO) 0.21 x10^3/uL (0-0.4); EOSINOPHILS % (AUTO) 2 % (1-7); LYMPHOCYTES % (AUTO) 5 % (22-44); MD SCAN; MONOCYTES % (AUTO) 18 % (2-9); NEUTROPHILS # (AUTO) 7.66 x10^3/uL (1.8-6.8); NEUTROPHILS % (AUTO) 75 % (42-75)
[2019-08-15 07:19] VITALS: BP 150/79
[2019-08-15] MEDS: FUROSEMIDE 40 MG/4 ML IV SCH ×2 (07:30→16:27)
[2019-08-15] MEDS: LOSARTAN 50MG TABLET PO SCH ×2 (07:35→21:00)
[2019-08-15] MEDS: LEVOTHYROXINE 100 MCG INJ IVPush SCH (07:35)
[2019-08-15] MEDS: MEROPENEM 1 GM in SODIUM CHLORIDE 0.9% 100 ML IV SCH ×3 (07:35→23:51)
[2019-08-15] MEDS: APIXABAN 5 MG TABLET PO SCH (07:36)
[2019-08-15] MEDS ORDERED: POTASSIUM CHLORIDE 20 MEQ in SODIUM CHLORIDE 0.9% 250 ML IV ONE ×2 (08:00→11:00)
[2019-08-15] MEDS: ENOXAPARIN 80 MG/0.8 ML SQ SCH ×2 (09:39→21:51)
[2019-08-15 09:46] VITALS: BP 136/82
[2019-08-15 12:36] VITALS: BP 147/89
[2019-08-15] MEDS ORDERED: DIPHENHYDRAMINE 50 MG/ML, 1ML IVPush ONE (13:30)
[2019-08-15 16:22] VITALS: BP 150/83
[2019-08-15] MEDS ORDERED: SODIUM CHLORIDE 0.9% 250 ML IV SCH (18:30)
[2019-08-15 20:12] VITALS: BP 147/89
[2019-08-16 03:31] VITALS: BP 166/81
[2019-08-16] MEDS: hydrALAzine 20 MG/ML, 1ML IV SCH ×4 (03:42→21:13)
[2019-08-16 05:46] LABS: MEAN CORPUSCULAR HEMOGLOBIN 29.1 pg (27.0-34.8); MEAN CORPUSCULAR HGB CONC 31.4 g/dL (32.4-35.8); MEAN CORPUSCULAR VOLUME 92.7 fL (80-100); MEAN PLATELET VOLUME 10.6 fL (7.4-10.4); PLATELET COUNT 162 x10^3/uL (130-400); RED CELL DISTRIBUTION WIDTH 19.3 % (9.6-15.2)
[2019-08-16 05:57] LABS: ANION GAP 4 mmol/L (5-15); CALCIUM 8.4 mg/dL (8.5-10.1); CHLORIDE 107 mmol/L (98-107); CREATININE 0.59 mg/dL (0.55-1.02)
[2019-08-16 06:20] LABS: BASOPHILS # (AUTO) 0.04 x10^3/uL (0-0.1); BASOPHILS % (AUTO) 0 % (0-1); EOSINOPHILS # (AUTO) 0.06 x10^3/uL (0-0.4); EOSINOPHILS % (AUTO) 1 % (1-7); LYMPHOCYTES # (AUTO) 0.43 x10^3/uL (1-3.4); LYMPHOCYTES % (AUTO) 4 % (22-44); MD SCAN; MONOCYTES # (AUTO) 1.66 x10^3/uL (0.2-0.8); MONOCYTES % (AUTO) 16 % (2-9); NEUTROPHILS # (AUTO) 8.08 x10^3/uL (1.8-6.8); NEUTROPHILS % (AUTO) 79 % (42-75)
[2019-08-16] MEDS: FUROSEMIDE 40 MG/4 ML IV SCH (06:36)
[2019-08-16 06:39] VITALS: BP 147/78
[2019-08-16] MEDS: MEROPENEM 1 GM in SODIUM CHLORIDE 0.9% 100 ML IV SCH ×2 (08:00→16:00)
[2019-08-16] MEDS: LOSARTAN 50MG TABLET PO SCH ×2 (08:24→21:00)
[2019-08-16] MEDS: LEVOTHYROXINE 100 MCG INJ IVPush SCH (08:34)
[2019-08-16 09:35] LABS: % IRON SATURATION 10 % (20-55); IRON LEVEL 35 mcg/dL (50-170); TOTAL IRON BINDING CAPACITY 347 mcg/dL (250-450)
[2019-08-16] MEDS: ENOXAPARIN 80 MG/0.8 ML SQ SCH ×2 (10:19→21:13)
[2019-08-16] MEDS: AMIODARONE 450 MG in DEXTROSE 5% 241 ML IV PRN (12:24)
[2019-08-16 13:40] VITALS: BP 136/88
--- NOTE | 2019-08-16 14:56 | NUR ---
1:1 supervision with RN only Spoon for all textures, no cup drinks Small bites/sips Cue to double swallow Alternate liquids and solids Addendum: 08/16/19 at 1457 by Jacquelyn LIND Amended: Links added.
[2019-08-16 19:42] VITALS: BP 123/83
[2019-08-16] MEDS ORDERED: MEROPENEM 1 GM in SODIUM CHLORIDE 0.9% 100 ML IV SCH (20:00)
[2019-08-17] MEDS: AMIODARONE 450 MG in DEXTROSE 5% 241 ML IV PRN ×2 (00:47→15:51)
[2019-08-17] MEDS: FILTER 0.22 MICRON IV PRN (00:47)
[2019-08-17 01:07] VITALS: BP 139/84
[2019-08-17 01:30] LABS: CULTURE INDICATED? YES; MICROSCOPIC INDICATED
[2019-08-17] MEDS: hydrALAzine 20 MG/ML, 1ML IV SCH ×4 (04:11→21:50)
[2019-08-17 05:30] LABS: ANION GAP 2 mmol/L (5-15); CALCIUM 8.5 mg/dL (8.5-10.1); CHLORIDE 102 mmol/L (98-107); MEAN CORPUSCULAR HEMOGLOBIN 29.3 pg (27.0-34.8); MEAN CORPUSCULAR HGB CONC 32.1 g/dL (32.4-35.8); MEAN CORPUSCULAR VOLUME 91.4 fL (80-100); MEAN PLATELET VOLUME 9.1 fL (7.4-10.4); PLATELET COUNT 111 x10^3/uL (130-400); RED BLOOD COUNT 3.93 x10^6/uL (3.82-5.3); RED CELL DISTRIBUTION WIDTH 19.1 % (9.6-15.2)
[2019-08-17 05:31] LABS: CREATININE 0.66 mg/dL (0.55-1.02)
[2019-08-17 05:53] LABS: BASOPHILS # (AUTO) 0.02 x10^3/uL (0-0.1); BASOPHILS % (AUTO) 0 % (0-1); EOSINOPHILS # (AUTO) 0.19 x10^3/uL (0-0.4); EOSINOPHILS % (AUTO) 2 % (1-7); LYMPHOCYTES # (AUTO) 0.44 x10^3/uL (1-3.4); LYMPHOCYTES % (AUTO) 4 % (22-44); MD SCAN; MONOCYTES # (AUTO) 1.86 x10^3/uL (0.2-0.8); MONOCYTES % (AUTO) 17 % (2-9); NEUTROPHILS # (AUTO) 8.55 x10^3/uL (1.8-6.8); NEUTROPHILS % (AUTO) 77 % (42-75)
[2019-08-17] MEDS ORDERED: POTASSIUM CHLORIDE 40 MEQ in SODIUM CHLORIDE 0.9% 500 ML IV ONE (08:00)
[2019-08-17 08:59] VITALS: BP 159/90
[2019-08-17] MEDS: ENOXAPARIN 80 MG/0.8 ML SQ SCH ×2 (09:04→21:49)
[2019-08-17] MEDS: LEVOTHYROXINE 100 MCG INJ IVPush SCH (09:05)
[2019-08-17] MEDS: ONDANSETRON ODT 4 MG PO PRN (13:10)
[2019-08-17] MEDS ORDERED: SODIUM CHLORIDE 0.9% 1,000 ML IV PRN (13:30)
[2019-08-17 15:00] VITALS: BP 149/79
[2019-08-17 19:12] VITALS: BP 111/67
[2019-08-18 01:27] VITALS: BP 129/75
[2019-08-18] MEDS: hydrALAzine 20 MG/ML, 1ML IV SCH ×4 (04:41→21:41)
[2019-08-18 04:56] LABS: ANION GAP 5 mmol/L (5-15); CALCIUM 8.1 mg/dL (8.5-10.1); CHLORIDE 102 mmol/L (98-107); CREATININE 0.77 mg/dL (0.55-1.02)
[2019-08-18] MEDS: ONDANSETRON ODT 4 MG PO PRN (05:23)
[2019-08-18 05:46] LABS: BASOPHILS # (AUTO) 0.04 x10^3/uL (0-0.1); BASOPHILS % (AUTO) 0 % (0-1); EOSINOPHILS % (AUTO) 1 % (1-7); LYMPHOCYTES # (AUTO) 0.74 x10^3/uL (1-3.4); LYMPHOCYTES % (AUTO) 7 % (22-44); MD SCAN; MEAN CORPUSCULAR HEMOGLOBIN 29.1 pg (27.0-34.8); MEAN CORPUSCULAR HGB CONC 31.8 g/dL (32.4-35.8); MEAN CORPUSCULAR VOLUME 91.6 fL (80-100); MEAN PLATELET VOLUME 9.4 fL (7.4-10.4); MONOCYTES % (AUTO) 12 % (2-9); NEUTROPHILS # (AUTO) 9.02 x10^3/uL (1.8-6.8); NEUTROPHILS % (AUTO) 80 % (42-75); PLATELET COUNT 109 x10^3/uL (130-400); RED CELL DISTRIBUTION WIDTH 18.9 % (9.6-15.2)
[2019-08-18] MEDS: AMIODARONE 450 MG in DEXTROSE 5% 241 ML IV PRN (06:16)
[2019-08-18] MEDS: FILTER 0.22 MICRON IV PRN (06:18)
[2019-08-18] MEDS: ENOXAPARIN 80 MG/0.8 ML SQ SCH ×2 (08:20→21:40)
[2019-08-18] MEDS: LEVOTHYROXINE 100 MCG INJ IVPush SCH (08:20)
[2019-08-18 08:22] VITALS: BP 137/74
[2019-08-18] MEDS ORDERED: AMIODARONE 200 MG TABLET PO SCH ×2 (09:00→11:00)
[2019-08-18] MEDS ORDERED: POTASSIUM CHLORIDE 10% 40 MEQ/30 ML UDC PO ONE (09:30)
[2019-08-18 13:30] VITALS: BP 134/64
[2019-08-18 16:28] VITALS: BP 144/82
[2019-08-18 18:44] VITALS: BP 116/18
[2019-08-19] VITALS (7 sets, daily range): BP systolic 126–156; BP diastolic 74–105
[2019-08-19] MEDS: hydrALAzine 20 MG/ML, 1ML IV SCH ×4 (04:10→21:48)
[2019-08-19 05:35] LABS: ALBUMIN 2.5 g/dL (3.4-5.0); CALCIUM 8.3 mg/dL (8.5-10.1); CHLORIDE 100 mmol/L (98-107)
[2019-08-19 05:40] LABS: ALANINE AMINOTRANSFERASE 35 U/L (12-78); ALKALINE PHOSPHATASE 96 U/L (45-117); ANION GAP 4 mmol/L (5-15); BILIRUBIN,TOTAL 1.6 mg/dL (0.2-1.0); CREATININE 0.65 mg/dL (0.55-1.02); TOTAL PROTEIN 5.7 g/dL (6.4-8.2)
[2019-08-19 05:58] LABS: MEAN CORPUSCULAR HEMOGLOBIN 29.3 pg (27.0-34.8); MEAN CORPUSCULAR HGB CONC 32.2 g/dL (32.4-35.8); MEAN PLATELET VOLUME 9.2 fL (7.4-10.4); PLATELET COUNT 75 x10^3/uL (130-400); RED BLOOD COUNT 3.83 x10^6/uL (3.82-5.3)
[2019-08-19 05:59] LABS: MD YES
[2019-08-19 06:01] LABS: BANDS%(MANUAL) 3 % (0-7); LYMPHS% (MANUAL) 10 % (22-44); MONOS% (MANUAL) 9 % (2-9); SEGS% (MANUAL) 78 % (42-75)
[2019-08-19 06:02] LABS: ANISOCYTOSIS 1+
[2019-08-19 06:03] LABS: <PLATELET ESTIMATE> DECREASED; <PLT MORPHOLOGY> NORMAL PLT MORPH; POLYCHROMASIA 1+
[2019-08-19] MEDS: LEVOTHYROXINE 100 MCG INJ IVPush SCH (08:25)
[2019-08-19] MEDS: ENOXAPARIN 80 MG/0.8 ML SQ SCH ×2 (08:25→21:48)
[2019-08-19] MEDS: AMIODARONE 200 MG TABLET PO SCH (08:25)
[2019-08-19] MEDS ORDERED: [UNRECOGNIZED DRUG - OTHER] PR ONE (16:30)
[2019-08-19] MEDS ORDERED: [UNRECOGNIZED DRUG - OTHER] PR ONE (17:30)
[2019-08-20 00:47] VITALS: BP 149/58
[2019-08-20 04:36] VITALS: BP 156/65
[2019-08-20] MEDS: hydrALAzine 20 MG/ML, 1ML IV SCH (04:42)
[2019-08-20 05:18] LABS: ANION GAP 6 mmol/L (5-15); CALCIUM 8.5 mg/dL (8.5-10.1); CHLORIDE 100 mmol/L (98-107); CREATININE 0.54 mg/dL (0.55-1.02)
[2019-08-20 06:29] LABS: BASOPHILS # (AUTO) 0.03 x10^3/uL (0-0.1); BASOPHILS % (AUTO) 0 % (0-1); EOSINOPHILS # (AUTO) 0.08 x10^3/uL (0-0.4); EOSINOPHILS % (AUTO) 1 % (1-7); LYMPHOCYTES # (AUTO) 0.69 x10^3/uL (1-3.4); LYMPHOCYTES % (AUTO) 8 % (22-44); MD SCAN; MEAN CORPUSCULAR HEMOGLOBIN 29.3 pg (27.0-34.8); MEAN CORPUSCULAR HGB CONC 32.2 g/dL (32.4-35.8); MEAN CORPUSCULAR VOLUME 91.3 fL (80-100); MEAN PLATELET VOLUME 9.6 fL (7.4-10.4); MONOCYTES # (AUTO) 1.23 x10^3/uL (0.2-0.8); MONOCYTES % (AUTO) 14 % (2-9); NEUTROPHILS # (AUTO) 6.85 x10^3/uL (1.8-6.8); NEUTROPHILS % (AUTO) 77 % (42-75); PLATELET COUNT 78 x10^3/uL (130-400); RED BLOOD COUNT 3.77 x10^6/uL (3.82-5.3); RED CELL DISTRIBUTION WIDTH 19.1 % (9.6-15.2)
[2019-08-20 06:50] VITALS: BP 136/77
[2019-08-20] MEDS: ENOXAPARIN 80 MG/0.8 ML SQ SCH ×2 (08:18→21:45)
[2019-08-20] MEDS: AMIODARONE 200 MG TABLET PO SCH (08:19)
[2019-08-20] MEDS: ONDANSETRON ODT 4 MG PO PRN (08:37)
[2019-08-20] MEDS: THYROID 30 MG TABLET PO SCH (10:58)
[2019-08-20 13:57] VITALS: BP 131/79
[2019-08-20 16:23] VITALS: BP 141/85
[2019-08-20 21:35] VITALS: BP 147/87
[2019-08-21 02:51] VITALS: BP 153/92
[2019-08-21 05:02] LABS: MEAN CORPUSCULAR HEMOGLOBIN 29.3 pg (27.0-34.8); MEAN CORPUSCULAR HGB CONC 32.3 g/dL (32.4-35.8); MEAN CORPUSCULAR VOLUME 90.8 fL (80-100); RED BLOOD COUNT 3.72 x10^6/uL (3.82-5.3); RED CELL DISTRIBUTION WIDTH 19.4 % (9.6-15.2)
[2019-08-21 05:03] LABS: ANION GAP 3 mmol/L (5-15); CALCIUM 8.7 mg/dL (8.5-10.1); CHLORIDE 102 mmol/L (98-107); CREATININE 0.62 mg/dL (0.55-1.02)
[2019-08-21 05:53] LABS: MEAN PLATELET VOLUME 9.4 fL (7.4-10.4); PLATELET COUNT 112 x10^3/uL (130-400)
[2019-08-21 05:55] LABS: MD YES
[2019-08-21 05:57] LABS: <PLATELET ESTIMATE> DECREASED; ANISOCYTOSIS 1+; BAND#(MANUAL) 0.16 x10^3/uL; BANDS%(MANUAL) 2 % (0-7); LYMPH#(MANUAL) 1.26 x10^3/uL (1-3.4); LYMPHS% (MANUAL) 16 % (22-44); METAMYELOCYTES# (MANUAL) 0.08 x10^3/uL (0-0); METAMYELOCYTES% (MANUAL) 1 % (0-1); MONOS#(MANUAL) 0.87 x10^3/uL (0.3-2.7); MONOS% (MANUAL) 11 % (2-9); MYELOCYTES# (MANUAL) 0.08 x10^3/uL (0-0); MYELOCYTES% (MANUAL) 1 % (0-0); POLYCHROMASIA 1+; SEG#(MANUAL) 5.45 x10^3/uL (1.8-6.8); SEGS% (MANUAL) 69 % (42-75)
[2019-08-21 05:58] LABS: GIANT PLATELETS 1+; LARGE PLATELETS 1+
[2019-08-21] MEDS: THYROID 30 MG TABLET PO SCH (06:11)
[2019-08-21 07:35] VITALS: BP 151/87
[2019-08-21] MEDS: ENOXAPARIN 80 MG/0.8 ML SQ SCH (08:17)
[2019-08-21] MEDS: AMIODARONE 200 MG TABLET PO SCH (08:17)
[2019-08-21] MEDS ORDERED: APIX5TAB PO (12:37)
[2019-08-21] MEDS ORDERED: HYDR-3341 PO (12:37)
[2019-08-21] MEDS ORDERED: AMIO200T42 PO (12:37)
[2019-08-21 13:08] VITALS: BP 159/75
== END 2019-08-21 16:55 | disposition home health service (06) | DRG 871 ==
LOC: CACL 10:38 → CCU 14:38 → 5SO 08-10 14:42 → CSU 08-12 08:58 → 5SO 08-14 17:08
PROVIDERS: ADMIT Internal Medicine Cardiovascular Disease; ATTEND Hospitalist
PROC: 5A12012 Performance of Cardiac Output, Single, Manual (ICD-10-PCS; 2019-08-04)
PROC: 4A023N6 Measurement of Cardiac Sampling and Pressure, Right Heart, Percutaneous Approach (ICD-10-PCS; 2019-08-04)
PROC: B31SYZZ Fluoroscopy of Right Pulmonary Artery using Other Contrast (ICD-10-PCS; 2019-08-04)
PROC: 4A023N7 Measurement of Cardiac Sampling and Pressure, Left Heart, Percutaneous Approach (ICD-10-PCS; 2019-08-04)
PROC: B211YZZ Fluoroscopy of Multiple Coronary Arteries using Other Contrast (ICD-10-PCS; 2019-08-04)
PROC: B215YZZ Fluoroscopy of Left Heart using Other Contrast (ICD-10-PCS; 2019-08-04)
PROC: 5A1223Z Performance of Cardiac Pacing, Continuous (ICD-10-PCS; 2019-08-04)
PROC: 5A1945Z Respiratory Ventilation, 24-96 Consecutive Hours (ICD-10-PCS; 2019-08-04)
PROC: 0BH17EZ Insertion of Endotracheal Airway into Trachea, Via Natural or Artificial Opening (ICD-10-PCS; 2019-08-04)
PROC: 0T9B70Z Drainage of Bladder with Drainage Device, Via Natural or Artificial Opening (ICD-10-PCS; principal; 2019-08-05)
PROC: 5A09357 Assistance with Respiratory Ventilation, Less than 24 Consecutive Hours, Continuous Positive Airway Pressure (ICD-10-PCS; 2019-08-08)
PROC: 5A09457 Assistance with Respiratory Ventilation, 24-96 Consecutive Hours, Continuous Positive Airway Pressure (ICD-10-PCS; 2019-08-12)
DX: A41.9 Sepsis, unspecified organism (principal); I50.33 Acute on chronic diastolic (congestive) heart failure; J69.0 Pneumonitis due to inhalation of food and vomit; J96.01 Acute respiratory failure with hypoxia; J96.02 Acute respiratory failure with hypercapnia; N17.0 Acute kidney failure with tubular necrosis; R57.0 Cardiogenic shock; I26.09 Other pulmonary embolism with acute cor pulmonale; D68.69 Other thrombophilia; E87.0 Hyperosmolality and hypernatremia; E87.2 Acidosis; G93.40 Encephalopathy, unspecified; I42.7 Cardiomyopathy due to drug and external agent; Z99.11 Dependence on respirator [ventilator] status; D63.8 Anemia in other chronic diseases classified elsewhere; D69.6 Thrombocytopenia, unspecified; E03.9 Hypothyroidism, unspecified; E87.6 Hypokalemia; F17.210 Nicotine dependence, cigarettes, uncomplicated; F43.20 Adjustment disorder, unspecified; F60.0 Paranoid personality disorder; I11.0 Hypertensive heart disease with heart failure; I27.21 Secondary pulmonary arterial hypertension; I34.0 Nonrheumatic mitral (valve) insufficiency; I48.0 Paroxysmal atrial fibrillation; R13.10 Dysphagia, unspecified; Z79.01 Long term (current) use of anticoagulants; Z82.3 Family history of stroke; Z88.0 Allergy status to penicillin; Z99.81 Dependence on supplemental oxygen
CPT/HCPCS: 36415; 36600; 74018; 74230; 93460; J3490; J7042; 70551; 71045; 71275; 80048; 80053; 81001; 82140; 82306; 82330; 82607; 82803; 82962; 83540; 83550; 83605; 83735; 84100; 84132; 84425; 84436; 84439; 84443; 84478; 84481; 85014; 85018; 85025; 85049; 85379; 85384; 85520; 85610; 85730; 86022; 87040; 87070; 87081; 87086; 87205; 93005; 93308; 94002; 94003; 94660; 95819; 99156; 99157; C1769; C1894; G0378; J0171; J0583; J0883; J1644; J1650; J1940; J2185; J2250; J2405; J2704; J3010; J3370; J3475; J3480; J7060; Q0162; Q9967; 92523-GN; J0282; J0330; J0360; J1160; J1200; J2060; J2370; J7030; J7040; J7050